=== PATIENT | female | born 1935 ===

== ENCOUNTER 2020-07-04 22:35 | Observation (INO) | payer MEDICARE, OTHER, SELFPAY ==
--- NOTE | ~2020-07-04 | CT_ITS ---
EXAMINATION: CT brain wo con EXAM DATE: 07/05/2020 00:03 INDICATION: Splitting headache. Altered mental status. TECHNIQUE: Spiral CT of the head was performed without contrast. Axial, coronal and sagittal images were reviewed. The dose-length product (DLP) for this examination was 605.33 mGy-cm. The exposure w as tailored according to patient size, and iterative reconstruction (ASIR) was used as additional dos e reduction technique. There is no prior study for comparison. FINDINGS: There is no acute intraparenchymal hemorrhage. No evidence of intraparenchymal brain mass lesion. No evidence of acute infarction. Please note that initial head CT has limited sensitivity f or small or acute infarctions. 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 There is mild periventricul ar and subcortical hypodensity, nonspecific but probably related to small vessel ischemic disease. There is moderate prominence of the sulci and ventricles related to cerebral atrophy. There is intr acranial carotid arteriosclerosis. There are no extra-axial collections. There is no mass effect or midline shift. Patient has had bilateral ocular lens surgery. Soft tissue is unremarkable. The vi sualized sinuses and mastoid air cells are well aerated. IMPRESSION: 1. 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 2. Chronic age related findings. Reviewed, dictated and finalized at location A.
--- NOTE | ~2020-07-04 | XR_ITS ---
EXAMINATION: XR chest 1V portable EXAM DATE: 07/05/2020 00:06 INDICATION: Shortness of breath, nausea and vomiting. Altered mental status, weakness. TECHNIQUE: Portable AP frontal chest x-ray was obtained. Comparison is made to prior examination from 06/20/2018. FINDINGS: The lungs are clear. There are no pleural effusions. Cardiac silhouette is prominent but magnified on this AP technique. There is no pneumothorax suspected. Bones appear osteopenic. Tosha rostomy tube. IMPRESSION: No acute cardiopulmonary findings. Reviewed, dictated and finalized at location A.
--- NOTE | ~2020-07-04 | CT_ITS ---
EXAMINATION: CT abdomen pelvis w con EXAM DATE: 07/05/2020 00:02 INDICATION: Upper abdominal pain. Unable to raise arms. Nausea and vomiting. TECHNIQUE: Spiral CT of the abdomen and pelvis was performed following intravenous injection of 100 m L Omnipaque 350. Axial, coronal and sagittal images were reviewed. The dose-length product (DLP) fo r this examination was 583.24 mGy-cm. The exposure was tailored according to patient size (auto mA e xposure control), and iterative reconstruction (ASIR) was used as additional dose reduction technique . There is no prior study for comparison. FINDINGS: The liver, spleen, adrenal glands and pancreas are unremarkable. There are cholecystectomy clips. Portal and splenic veins are patent. Kidneys enhance symmetrically. There is no hydronephr osis. The uterus is unremarkable. The bladder is unremarkable. There is no retroperitoneal or pe lvic lymphadenopathy. There is moderate scattered arteriosclerotic disease. The appendix is not positively visualized. There is no pericecal inflammatory change to suggest appe ndicitis. There is a gastrostomy tube in position. Some reflux into the esophagus. There is expecte d amount of colonic stool. There is mild to moderate colonic diverticulosis. There is no adjacent in flammatory change to suggest diverticulitis. No free intraperitoneal gas. The heart is normal in s ize. There are no pericardial or pleural effusions. Right basilar subsegmental atelectasis. There are no osteoblastic or osteolytic lesions identified. IMPRESSION: 1. No acute intra-abdominal findings. 2. Sigmoid diverticulosis. 3. Gastroesophageal reflux. 4. Right basilar atelectasis. 5. Surgical changes. Reviewed, dictated and finalized at location A.
[2020-07-04 22:30] VITALS: BP 111/98; PULSE 97; RESP 25; TEMP 37.4; O2SAT 92
--- NOTE | 2020-07-04 22:31 | ED.WEAKNESS ---
HPI - Weakness General Chief complaint: Weakness Stated complaint: WEAKNESS/ N/V Source: family and EMS Mode of arrival: EMS Limitations: language barrier and clinical condition History of Present Illness HPI Narrative: Patient is an 85-year-old female with a history of COPD, bulbar ALS, who presents for evaluation of vomiting, weakness. Patient lives with her daughter at her home residence, ALS has been progressing, patient is not able to do only very small hand movements and can sometimes communicate with the use of these hand movements and eye gestures. Patient has been nauseous and had several episodes of nonbloody, nonbilious emesis today. No fever, chills or cough. Daughter states her mother has been acting off has been glancing in various directions and at times is very difficult keep awake. In room, patient is reporting to me that she has had some lower chest and upper abdominal pain. She motions to her chest and abdomen to indicate the area. She states currently she has a little bit of pain. Shakes her head no when asked about radiation of the pain. Related Data Home Medications Medication Instructions Recorded Confirmed apixaban 2.5 mg tablet 2.5 mg PO BID 12/28/19 01/13/20 arformoterol 15 mcg/2 mL solution 2 ml INHALATION BID 12/28/19 01/13/20 for nebulization aspirin 81 mg tablet,delayed 81 mg PO DAILY 12/28/19 01/13/20 release brimonidine 0.15 % eye drops 1 drop EACH EYE Q8H 12/28/19 01/13/20 budesonide 0.5 mg/2 mL suspension 0.5 mg INHALATION DAILY 12/28/19 01/13/20 for nebulization carvedilol 3.125 mg tablet 3.125 mg PO Q12H 12/28/19 01/13/20 dicyclomine 10 mg capsule 10 mg PO TID cap 12/28/19 01/13/20 ipratropium bromide 0.02 % 2.5 ml INHALATION Q6H PRN 12/28/19 01/13/20 solution for inhalation ipratropium bromide 0.03 % nasal 2 spray NASAL BID 12/28/19 01/13/20 spray levalbuterol HCl 1.25 mg/3 mL 1.25 mg INHALATION Q4H 12/28/19 01/13/20 solution for nebulization polyvinyl alcohol 1.4 % eye drops 1 drop EACH EYE DAILY 12/28/19 01/13/20 riluzole 50 mg tablet 50 mg PO Q12H 12/28/19 01/13/20 sertraline 100 mg tablet 100 mg PO DAILY 12/28/19 01/13/20 travoprost 0.004 % eye drops 1 drop EACH EYE QPM 12/28/19 01/13/20 montelukast 10 mg tablet 10 mg PO DAILY 01/13/20 01/13/20 Allergies Allergy/AdvReac Type Severity Reaction Status Date / Time amoxicillin Allergy Unknown Nausea and Verified 07/04/20 22:43 Vomiting codeine Allergy Unknown Nausea and Verified 07/04/20 22:43 Vomiting tramadol Allergy Unknown Vomiting Verified 07/04/20 22:43 Review of Systems Review of Systems: Narrative: CONSTITUTIONAL: Denies fever CARDIOVASCULAR: Reports lower chest pain RESPIRATORY: Denies cough or dyspnea. GASTROINTESTINAL: Reports upper abdominal pain SKIN: Denies rash MUSCULOSKELETAL: Denies back pain NEUROLOGIC: Denies headache PMFSH Past Medical History Medical History ALS (amyotrophic lateral sclerosis) Body mass index (BMI) 20.0-20.9, adult (06/24/19) Chronic obstructive pulmonary disease Glaucoma Hypoxemia Increased nasal secretion Increased oropharyngeal secretions Thyroid storm Surgical History Surgical History History of appendectomy History of bilateral cataract extraction History of cholecystectomy History of hernia repair Social History Social History Smoking status: Never smoker Exam Narrative: Exam Narrative: GENERAL: Awake, alert, non verbal HEAD: Normocephalic, atraumatic. EYES: PERRLA and EOMI. ENT: Nares clear, no rhinorrhea or epistaxis. Mucous membranes dry NECK: Supple. CHEST: No respiratory distress, breathing even and non labored HEART: Regular rate, sinus rhythm ABDOMEN:Non distended, non tender, g tube in place, patent EXTREMITIES: Decreased ROM in lower extremity, increased tonicity, abl
[2020-07-04 22:41] VITALS: PULSE 103
--- NOTE | 2020-07-04 22:45 | ECG_ITS ---
Measurements Intervals [place] Rate: 88 P: 52 WA: 141 QRS: 39 QRSD: 126 T: 39 QT: 368 QTc: 447 Interpretive Statements SINUS RHYTHM RIGHT BUNDLE BRANCH BLOCK BASELINE ARTIFACT- I, II, III, AVR, AVL, AVF, V1-V3, V6 ABNORMAL ECG Electronically Signed On 07-05-2020 7:28:24 CDT by Shadi Ríos D.O.
[2020-07-04 23:04] LABS: Alveolar/Arterial O2 Gradient 22.3 mmHg; Base Excess ABG 2.7 mEq/l (+/-2.0); Fractional Inspired Oxygen 21 %; HCO3 ABG 28.7 mEq/l (22.0-26.0); Oxygen Content ABG 18.5 %vol (16.0-22.0); Oxyhemoglobin 91.6 % THb (90.0-100.0); PCO2 ABG 49.7 mmHg (35.0-45.0); PO2 ABG 67.9 mmHg (80.0-100.0); PO2 FiO2 Ratio Arterial Blood 3.23 %; Total Hemoglobin 14.4 g/dL (12.0-18.0)
[2020-07-04 23:05] LABS: Device ROOM AIR; Modified Allen's Test Pass; Site Drawn LEFT RADIAL
[2020-07-04] MEDS: SODIUM CHLORIDE 0.9% IV 1,000 ML 999 ML IV CONT (23:10)
[2020-07-04 23:15] VITALS: BP 128/69; PULSE 91; RESP 21; O2SAT 93
--- NOTE | 2020-07-04 23:23 | PC.NURSE ---
Called lab to add on TSH
[2020-07-04 23:26] LABS: Basophils Percent Auto 0.1 % (0.2-1.2); Eosinophils Absolute Auto 0.2 K/mm3 (0-0.3); Eosinophils Percent Auto 1.6 % (0-4.4); Hematocrit 42.6 % (37.0-47.0); Hemoglobin 14.5 g/dL (12.0-15.0); Immature Granulocyte Absolute 0.03 K/mm3 (0.00-0.031); Immature Granulocyte Percent A 0.3 % (0-0.5); Lymphocytes Absolute Auto 1.53 K/mm3 (0.9-3.2); Lymphocytes Percent Auto 14.8 % (18.3-44.2); Mean Corpuscular Hemoglobin 32.2 pg (26-34); Mean Corpuscular Volume 94.7 fl (80-100); Mean Platelet Volume 11.2 fl (7.4-10.4); Monocytes Absolute Auto 0.9 K/mm3 (0.1-0.6); Monocytes Percent Auto 8.4 % (2.6-8.5); Neutrophils Absolute Auto 7.7 K/mm3 (1.3-6.7); Neutrophils Percent Auto 74.8 % (45.5-73.1); Platelet Count Result 217 k/mm3 (150-375); Red Cell Distribution Width 11.8 % (11.5-14.5); White Blood Count 10.3 K/mm3 (4.5-10.0)
[2020-07-04 23:33] LABS: Ammonia < 9 umol/L (9-30)
[2020-07-04 23:36] LABS: Prothrombin Time 12.6 Seconds (11.1-14.7)
[2020-07-04 23:37] LABS: Partial Thromboplastin Time 25.3 SECONDS (22.3-36.8)
[2020-07-04 23:40] LABS: Alanine Aminotransferase 23 U/L (4-35); Albumin Level 4.1 g/dL (3.5-5.1); Alkaline Phosphatase 78 U/L (38-126); Anion Gap 10 mmol/L (8-16); Aspartate Amino Transferase 31 U/L (14-36); Bilirubin,Total 0.3 mg/dL (0.2-1.3); Blood Urea Nitrogen 26 mg/dL (7-17); Calcium 8.8 mg/dL (8.4-10.2); Carbon Dioxide 28 mmol/L (22-30); Chloride 98 mmol/L (98-107); Estimated Glomerular Filt Rate > 60; Glucose 110 mg/dL (65-105); Lactic Acid Reflex 1.4 mmol/L (0.7-2.1); Potassium 4.2 mmol/L (3.4-5.0); Sodium 136 mmol/L (137-145)
[2020-07-04 23:50] LABS: Add Urine Microscopic? YES; Amorphous Sediment Urine Few; Appearance Urine Clear (Clear); Bilirubin Urine Negative (Negative); Blood Urine Negative (Negative); Color Urine Yellow (Yellow); Glucose Urine UA Negative (Negative); Ketones Urine Negative (Negative); Leukocyte Esterase Ur Negative LEU/UL (Negative); Nitrate Urine Negative (Negative); Protein Urine Negative (Negative); Specific Grav Ur 1.015 (1.001-1.035); Squamous Epithelial Cell Urine Rare /hpf (Few); Urobilinogen Urine Negative mg/dL (<2.0); WBC Urine 0-3 /hpf
[2020-07-04 23:51] LABS: Troponin I 0.023 ng/mL (0.000-0.034)
[2020-07-05] VITALS (14 sets, daily range): BP systolic 107–149; BP diastolic 47–96; PULSE 70–108; RESP 17–24; TEMP 36.7–37; O2SAT 91–100; BMI 20.5
--- NOTE | 2020-07-05 | PC.NURSE ---
Called into pt. rm by wong Hernandez. states pt needs suctioned. ERP at bedside upon arrival. Pt sitting up and being held by daughter and alert. Pt gazing around the room. pt. suctioned and tolerated it well.
--- NOTE | 2020-07-05 02:14 | PC.NURSE ---
Spoke with JULIOCESAR at [facility] to set up admission into their services. She set up an appointment for the daughter at 1330 today.
[2020-07-05] MEDS: ONDANSETRON INJ 4 MG/2 ML VIAL IV PUSH (03:34)
[2020-07-05] MEDS: METOCLOPRAMIDE HCL INJ 10 MG/2 ML VIAL IV PUSH (03:46)
--- NOTE | 2020-07-05 04:26 | PC.NURSE ---
This patient, Araseli Hicks, was admitted to 3 [facility] Room 310-01. Patient/family oriented to hospital policies and general routines including ID bracelet, bed and alarms, visiting hours, pain management, procedures, bathroom and other care routines, personal items, smoking policy, room service/diet, and visiting hours. Valuables list has been completed. Information on how to activate the Rapid Response Team has been discussed. Patient/Family are encouraged to report perceived risks to care and to ask questions if they do not understand what they are told or what they should do.
--- NOTE | 2020-07-05 04:55 | PC.NURSE ---
07/05/20 at 0400--Patient arrived per stretcher, alert and awake, gives thumbs up and thumbs down hand gestures to communicate with nursing staff. orientated to call light and bed controls, repositioned with pillow, HOB elevated for comfort, yanker suction placed at bedside, placed on rebreather for comfort, patient anxious upon arrival . assessment completed, call light within reach.TDialRNC
[2020-07-05] MEDS: SODIUM CHLORIDE 0.9% IV 1,000 ML 125 ML IV CONT ×3 (06:07→23:06)
[2020-07-05 06:42] LABS: Troponin I 0.422 ng/mL (0.000-0.034)
[2020-07-05] MEDS: carvediloL 3.125 MG TABLET PO (11:47)
[2020-07-05] MEDS: PANTOPRAZOLE 40 MG TABLET PO (11:47)
[2020-07-05] MEDS: SERTRALINE HCL 50 MG TABLET 100 MG PO (11:47)
[2020-07-05] MEDS: SENNA/DOCUSATE SODIUM TABLET 1 TAB PO (11:47)
[2020-07-05] MEDS: MONTELUKAST SODIUM 10 MG TABLET PO (11:47)
--- NOTE | 2020-07-05 15:04 | PM.IMHP ---
H&P: HPI History of Present Illness Date/Time: 07/05/20 15:04 Chief complaint: Nausea, vomiting, dehydration Narrative: Araseli Hicks is a 85 year old female with history of bulbar amyotrophic lateral sclerosis, COPD presented to the hospital with nausea and vomiting without hematemesis. It is difficult to get history from the patient since she can communicate with signs only, the history was obtained from the chart and family. Apparently her ALS has been progressively getting worse with weakness inability to speak, confusion, difficulty performing ADL. When asked about abdominal pain, fever, cough, chest pain the patient denies with her head, she refers pain on her lower extremities but at this time she seems comfortable. Review of Systems Review of Systems: ROS unobtainable: Yes other (Limited due to patient medical condition but was negative other than HPI) [facility] Past Medical History Medical History ALS (amyotrophic lateral sclerosis) Body mass index (BMI) 20.0-20.9, adult (06/24/19) Chronic obstructive pulmonary disease Glaucoma Hypoxemia Increased nasal secretion Increased oropharyngeal secretions Thyroid storm Surgical History Surgical History History of appendectomy History of bilateral cataract extraction History of cholecystectomy History of hernia repair Social History Social History Smoking status: Never smoker Alcohol intake: former Substance use: former Substance use type: marijuana Other substance usage details: has a medical marijuana card Gender identity (if verbalized by the patient): Female Spiritual care concerns: Yes Meds Home Medications and Allergies Home Medications Medication Instructions Recorded Confirmed Type arformoterol 15 mcg/2 mL solution 2 ml INHALATION BID 12/28/19 07/05/20 History for nebulization aspirin 81 mg tablet,delayed 81 mg PO DAILY 12/28/19 07/05/20 History release brimonidine 0.15 % eye drops 1 drop EACH EYE BID 12/28/19 07/05/20 History budesonide 0.5 mg/2 mL suspension 0.5 mg INHALATION BID PRN 12/28/19 07/05/20 History for nebulization carvedilol 3.125 mg tablet 3.125 mg PO Q12H 12/28/19 07/05/20 History dicyclomine 10 mg capsule 10 mg PO TID cap 12/28/19 07/05/20 History levalbuterol HCl 1.25 mg/3 mL 1.25 mg INHALATION Q4H PRN 12/28/19 07/05/20 History solution for nebulization polyvinyl alcohol 1.4 % eye drops 1 drop EACH EYE BID 12/28/19 07/05/20 History riluzole 50 mg tablet 50 mg PO Q12H 12/28/19 07/05/20 History sertraline 100 mg tablet 100 mg PO DAILY 12/28/19 07/05/20 History travoprost 0.004 % eye drops 1 drop EACH EYE QPM 12/28/19 07/05/20 History montelukast 10 mg tablet 10 mg PO DAILY 01/13/20 07/05/20 History omeprazole magnesium [Acid Statistical Methods Professor 20 mg PO DAILY 07/05/20 07/05/20 History (omeprazole)] sennosides-docusate sodium [Senna 1 tab-cap PO BID 07/05/20 07/05/20 History Plus] Allergies Allergy/AdvReac Type Severity Reaction Status Date / Time amoxicillin Allergy Unknown Nausea and Verified 07/04/20 22:43 Vomiting codeine Allergy Unknown Nausea and Verified 07/04/20 22:43 Vomiting tramadol Allergy Unknown Vomiting Verified 07/04/20 22:43 Vital Signs Vital Signs - 24 hr 07/04/20 22:30 07/04/20 22:41 07/04/20 23:15 Temperature 99.4 F Pulse Rate 97 103 H 91 Respiratory Rate 25 H 21 H Blood Pressure 111/98 H 128/69 Pulse Oximetry 92 93 07/05/20 00:00 07/05/20 01:18 07/05/20 02:45 Temperature Pulse Rate 98 102 H 108 H Respiratory Rate 23 H 22 H 17 Blood Pressure 120/64 137/77 116/96 H Pulse Oximetry 92 95 98 07/05/20 03:45 07/05/20 04:00 07/05/20 06:00 Temperature 98.3 F 98.2 F 98.1 F Pulse Rate 100 94 78 Respiratory Rate 19 24 H 22 H Blood Pressure 140/88 149/66 H 129/68 Pulse Oximetry 97 94 100 07/05/20
--- NOTE | 2020-07-05 15:59 | PHAR ---
Home med verified: Riluzole 50mg take 1 tablet PO Q12hr
[2020-07-05] MEDS: ACETAMINOPHEN ELIXIR 325 MG/10.15 ML UDC 650 MG FEED TUBE ×2 (17:08→23:06)
[2020-07-05] MEDS: SENNA/DOCUSATE SODIUM TABLET 1 TAB XX (17:09)
[2020-07-05] MEDS: carvediloL 3.125 MG TABLET FEED TUBE (21:45)
[2020-07-05] MEDS: LATANOPROST 0.005% OP SOLN 2.5 ML BTL 1 DROP EACH EYE (22:04)
[2020-07-06 06:00] VITALS: BP 131/58; PULSE 85; RESP 20; TEMP 36.4; O2SAT 92
[2020-07-06] MEDS: ACETAMINOPHEN ELIXIR 325 MG/10.15 ML UDC 650 MG FEED TUBE ×2 (06:50→12:53)
--- NOTE | 2020-07-06 07:17 | PM.DS ---
DS: Admitting Diagnosis Admitting Diagnosis Admitting Diagnosis: Nausea, vomiting, dehydration DS: Discharge Diagnosis Discharge Diagnosis (1) Nausea & vomiting: Qualifiers: Vomiting Intractability: non-intractable Code(s): R11.2 - Nausea with vomiting, unspecified Status: Acute (2) Dehydration: Code(s): E86.0 - Dehydration Status: Acute (3) ALS (amyotrophic lateral sclerosis): Code(s): G12.21 - Amyotrophic lateral sclerosis Status: Acute DS: Summary Hospital Course Reason for hospitalization: Nausea and vomiting Hospital Course: 85 yo patient presented with nausea and vomiting, she has been having worsening symptoms likely related to her ALS, she has been having more confusion and difficulty performing ADL, more tremors. Here in the hospital her evaluation was grossly unremarkable for an acute process, she was found to be slightly dehydrated however her nausea and vomiting completely resolved. Currently she denies pain, no nausea or vomiting , she is tolerating her tube feedings without problems. A ct of the abdomen and pelvis was negative for an obstruction or any other acute process, the same with the CXR. Her family and the patient decided to go with hospice care given her worsening symptoms of ALS, today she is going to be discharged home with hospice care. Status at Discharge Overall status at discharge: patient is back to baseline Time Spent with Patient Time attestation: Total time spent providing and/or coordinating discharge services: Time spent: Greater than 30 minutes Exam Const: General: comfortable and no acute distress Eyes: Pupils: Equal, round and reactive pupils present Neck: Neck: supple and no JVD Resp: Effort & Inspection: normal respiratory effort Auscultation: clear to auscultation bilaterally Cardio: Rate: regular rate Rhythm: regular rhythm GI: GI Palp: Yes Soft to palpation Other: No guarding , no tenderness. G tube in place. Neuro: Other: Tremors and increase tonicity in the upper extremities but no focal deficits. Extrem: General: normal to inspection Discharge Plan Discharge Attending physician on discharge: Santhosh Murguia Discharging Clinician: Santhosh Murguia Patient Disposition: Hospice - Home Activity: as tolerated Diet: tube feeding Stand Alone Forms: General Discharge Information Follow-up/Referrals: Kathy,MD Jerardo [Primary Care Provider] - Discharge Medications: Continued travoprost [Travatan Z] 0.004 % drops 1 drop EACH EYE QPM RF: 0 sertraline 100 mg tablet 100 mg PO DAILY RF: 0 riluzole 50 mg tablet 50 mg PO Q12H RF: 0 levalbuterol HCl 1.25 mg/3 mL solution for nebulization 1.25 mg INHALATION Q4H PRN (Reason: Shortness Of Breath Or Wheezing) RF: 0 carvedilol 3.125 mg tablet 3.125 mg PO Q12H RF: 0 budesonide 0.5 mg/2 mL suspension for nebulization 0.5 mg INHALATION BID PRN (Reason: Shortness Of Breath Or Wheezing) RF: 0 Brovana 15 mcg/2 mL solution for nebulization 2 ml INHALATION BID RF: 0 aspirin 81 mg tablet,delayed release (DR/EC) 81 mg PO DAILY RF: 0 polyvinyl alcohol [Artificial Tears (polyvin alc)] 1.4 % drops 1 drop EACH EYE BID RF: 0 brimonidine [Alphagan P] 0.15 % drops 1 drop EACH EYE BID RF: 0 montelukast [Singulair] 10 mg tablet 10 mg PO DAILY RF: 0 omeprazole magnesium [Acid Floating Operator (omeprazole)] 20 mg Capsule,Delayed Release(Dr/Ec) 20 mg PO DAILY RF: 0 Senna Plus 8.6-50 mg Capsule 1 tab-cap PO BID RF: 0 Discontinued dicyclomine 10 mg capsule 10 mg PO TID RF: 0 Date of admission: 07/05/20 02:42 Primary Care Provider: CarolynJerardo Admitting Provider: Geetha Mata Attending physician on admission: Geetha Mata Condition: Stable Quality VTE Prophylaxis VTE prophylaxis: mechanical ordered
[2020-07-06] MEDS: SODIUM CHLORIDE 0.9% IV 1,000 ML 125 ML IV CONT (07:30)
[2020-07-06] MEDS: SERTRALINE HCL 50 MG TABLET 100 MG FEED TUBE (10:26)
[2020-07-06] MEDS: SENNA/DOCUSATE SODIUM TABLET 1 TAB XX (10:26)
[2020-07-06] MEDS: MONTELUKAST SODIUM 10 MG TABLET FEED TUBE (10:26)
[2020-07-06] MEDS: carvediloL 3.125 MG TABLET FEED TUBE (10:27)
[2020-07-06] MEDS: ONDANSETRON INJ 4 MG/2 ML VIAL IV PUSH (13:53)
[2020-07-06 14:00] VITALS: BP 144/68; PULSE 88; RESP 22; TEMP 37; O2SAT 96
== END 2020-07-06 16:20 | disposition hospice, home (50) ==
LOC: ANHED 07-05 02:05 → ANH3MEDSUR 07-05 09:55
PROVIDERS: Admitting Provider Internal Medicine; Emergency Provider Emergency Medicine; PCP Family Medicine; Visit Provider Hospitalist
DX: R11.2 Nausea with vomiting, unspecified (principal); E86.0 Dehydration; G12.21 Amyotrophic lateral sclerosis; J44.9 Chronic obstructive pulmonary disease, unspecified; R07.9 Chest pain, unspecified; Z79.899 Other long term (current) drug therapy
CPT/HCPCS: 36415; 36600; 51702; 70450; 71045; 74177; 80053; 81001; 82140; 82805; 83605; 84443; 84484; 85025; 85610; 85730; 87040; 93005; 96361; 96365; 96374; 96375; 96376; 99285; A9270; G0378; J0131; J2405; J2765; J7030; Q9967